=== PATIENT | female | born 1985 | race African-American/Black ===

== ENCOUNTER 2020-12-14 12:44 | Emergency (ER) | payer SELFPAY ==
[2020-12-14 13:15] LABS: Bilirubin Negative (Negative); Blood, Urine Large (Negative); Clarity Clear (Clear); Glucose, Urine (Dipstick) Negative (Negative); Ketone, Urine Negative (Negative); Leukocyte Trace (Negative); Nitrite Negative (Negative); Protein, Urine (Dipstick) 30 mg/dL (Neg-Trace); Urobilinogen 0.2 mg/dL (Less than 2)
[2020-12-14 13:23] LABS: Hemoglobin 13.1 g/dL (12.0-16.0); Mean Corpuscular HGB CONC 30.5 g/dL (32.0-36.0); Mean Corpuscular Volume 85.2 fL (78.0-98.0); Mean Platelet Volume 9.2 fL (7.4-10.4); Platelet Count 324 thou/uL (130-400); RBC Distribution Width 15.7 % (11.5-14.5); Red Blood Cell (RBC) Count 5.04 mill/uL (4.20-5.40); White Blood Cell (WBC) Count 5.4 thou/uL (4.8-10.8)
[2020-12-14 13:39] LABS: ALT (SGPT) 134 U/L (8-55); AST (SGOT) 61 U/L (5-34); Albumin 4.3 g/dL (3.5-5.0); Alkaline Phosphatase 277 U/L (40-110); Anion Gap 14 mmol/L (10-20); BUN (Urea Nitrogen) 15 mg/dL (7.0-18.7); Bilirubin, Total 0.3 mg/dL (0.2-1.2); Calc. Creatinine Clearance 0 mL/min (70-130); Calcium 9.4 mg/dL (7.8-10.44); Carbon Dioxide 22 mmol/L (22-29); Chloride 104 mmol/L (98-107); Globulin 4.7 g/dL (2.4-3.5); Glucose 111 mg/dL (70-105); Potassium 3.4 mmol/L (3.5-5.1); Sodium 137 mmol/L (136-145)
[2020-12-14 13:39] LABS: RBC/HPF 0-3 HPF (0-3); WBC/HPF 0-3 HPF (0-3)
[2020-12-14 13:40] LABS: Bacteria/HPF 1+ HPF (None Seen); Squamous Epithelial 0-3 HPF (0-3)
[2020-12-14 13:47] LABS: Elliptocytes SLIGHT = 2-5 cells (100X) (0-1/hpf); Eosinophils 3 % (0-10); Lymphocytes 32 % (21-51); MDiff Complete? YES; Monocytes 8 % (0-10); Neutrophil 56 % (42-75); Platelet Morphology Comment Appears Adequate
== END 2020-12-14 14:04 | disposition home or self-care (01) ==
LOC: BURERS 12:44
DX: R10.9 Unspecified abdominal pain (principal); Z79.899 Other long term (current) drug therapy; Z79.52 Long term (current) use of systemic steroids
CPT/HCPCS: 80053; 81003; 81015; 85025; 99283

== ENCOUNTER 2021-05-07 05:10 | Emergency (ER) | payer SELFPAY ==
[2021-05-07] MEDS ORDERED: Ondansetron PF 4 MG/2 ML Vial ONE (05:50)
[2021-05-07] MEDS ORDERED: Morphine 4 MG/ML VIAL ONE ×2 (05:50→06:31)
[2021-05-07 05:52] LABS: Bilirubin Negative (Negative); Blood, Urine Large (Negative); Clarity Clear (Clear); Glucose, Urine (Dipstick) Negative (Negative); Ketone, Urine Negative (Negative); Leukocyte Negative (Negative); Nitrite Negative (Negative); Pregnancy Test - Urine (BHCG) Negative (Negative); Protein, Urine (Dipstick) 30 mg/dL (Neg-Trace); Urobilinogen 0.2 mg/dL (Less than 2)
[2021-05-07 05:53] LABS: Pregu Control Background? CLEAR/WHITE (CLR/WHITE); Pregu Control Bar Appear? YES (CONTROL BAR)
[2021-05-07 06:09] LABS: RBC/HPF 0-3 HPF (0-3); WBC/HPF 0-3 HPF (0-3)
[2021-05-07 06:10] LABS: Bacteria/HPF Rare-Few HPF (None Seen)
== END 2021-05-07 06:54 | disposition home or self-care (01) ==
LOC: BURERS 05:10
DX: N20.0 Calculus of kidney (principal)
CPT/HCPCS: 81003; 81015; 81025; 96374; 96375; 96376; J2270; J2405